=== PATIENT | male | born 1950 | race Caucasian/White ===

== ENCOUNTER → 2016-05-04 | Outpatient (CLI) | payer OTHER ==
[~2016-05-04] MED LIST: AMLO-114 PO; ATV5 PO; CALC500C70 PO; CLIN300C10 PO; ESCI10TA17 PO; FLUT0.0529 NAE; FLUT50SP37; GLC500 PO; GLCPUNK PO; LSN20 PO; MTR400 PO
[2016-05-04 17:45] LABS: BLOOD UREA NITROGEN 22 mg/dl (7-18); BUN/CREATININE RATIO 23.6 (10-20); CALCIUM 9.7 mg/dl (8.5-10.1); CARBON DIOXIDE 26 mmol/L (21-32); CHLORIDE 105 mmol/L (98-107); CREATININE 0.94 mg/dl (0.60-1.40); GLUCOSE 177 mg/dl (70-99); POTASSIUM 4.3 mmol/L (3.5-5.1); SODIUM 141 mmol/L (136-145)
[2016-05-05 06:32] LABS: ESTIMATED AVERAGE GLUCOSE 154 mg/dl; HA1C FLAG Normal (Normal)
== END | disposition home or self-care (01) ==
LOC: C.LABPVFM 15:16
PROVIDERS: ATTEND Family Medicine
DX: E11.9 Type 2 diabetes mellitus without complications (principal); I10 Essential (primary) hypertension

== ENCOUNTER → 2016-08-30 | Outpatient (CLI) | payer OTHER ==
[2016-08-30 13:44] LABS: ESTIMATED AVERAGE GLUCOSE 154 mg/dl; HA1C FLAG Normal (Normal)
[2016-08-30 18:35] LABS: BLOOD UREA NITROGEN 20 mg/dl (7-18); BUN/CREATININE RATIO 20.2 (10-20); CALCIUM 8.8 mg/dl (8.5-10.1); CARBON DIOXIDE 24 mmol/L (21-32); CHLORIDE 104 mmol/L (98-107); GLUCOSE 221 mg/dl (70-99); POTASSIUM 4.1 mmol/L (3.5-5.1); SODIUM 139 mmol/L (136-145)
== END | disposition home or self-care (01) ==
LOC: C.LABPVFM 11:05
PROVIDERS: ATTEND Family Medicine
DX: E11.9 Type 2 diabetes mellitus without complications (principal); F41.9 Anxiety disorder, unspecified; R10.2 Pelvic and perineal pain; M54.5 Low back pain; I71.9 Aortic aneurysm of unspecified site, without rupture; E55.9 Vitamin D deficiency, unspecified; J01.10 Acute frontal sinusitis, unspecified

== ENCOUNTER 2016-08-31 21:50 | Emergency (ER) | payer OTHER ==
[~2016-08-31] VITALS: Ht 172.7 cm; Wt 95.5 kg
[~2016-08-31 21:50] MED LIST changes: -CLIN300C10 PO; -FLUT50SP37; -GLC500 PO
[2016-08-31 21:53] VITALS: TEMP 36.4; Ht 172.7 cm; Wt 95.5 kg
[2016-08-31] MEDS ORDERED: GLC500 PO (22:06)
[2016-08-31] MEDS ORDERED: FLUT50SP37 (22:06)
--- NOTE | 2016-08-31 22:28 | DIAGNOSTIC IMAGING REPORT ---
LEFT ELBOW MIN 3 VIEWS ROUTINE CLINICAL HISTORY: left elbow swelling edema COMPARISON: None. DISCUSSION: The bones and joint spaces appear intact. There is no evidence of fracture, dislocation or bony disease. Considerable soft tissue edema. No significant joint effusion. IMPRESSION: Considerable soft tissue edema. No significant joint effusion. No acute bony abnormality. Electronically signed by: Shon Huggins M.D. 08/31/2016 10:27 PM Dictated Date/Time: 08/31/2016 10:26 PM
[2016-08-31 23:04] LABS: BASO % 0.2 %; BASO ABS # 0.03 K/uL (0-0.2); COMPLETE YES; EOS % 1.3 %; HEMATOCRIT 44.3 % (42-52); IG% 0.3 %; LYMPH % 13.2 %; LYMPH ABS # 1.81 K/uL (1.2-3.4); MEAN CELL VOLUME 91.7 fL (80-100); MEAN CORPUSCULAR HEMOGLOBIN 32.1 pg (25-34); MEAN PLATELET VOLUME 12.1 fL (7.4-10.4); MONO % 10.4 %; NEUT % 74.6 %; PLATELET COUNT 150 K/uL (130-400); RED BLOOD COUNT 4.83 M/uL (4.7-6.1)
[2016-08-31] MEDS ORDERED: CLINDAMYCIN IV 900 MG in DEXTROSE 5% ADD-VANTAGE 100ML 100 ML IV ONE (23:15)
[2016-08-31 23:34] LABS: SYNOVIAL FLUID APPEARANCE HAZY; SYNOVIAL FLUID COLOR YELLOW
[2016-08-31 23:36] LABS: BUN/CREATININE RATIO 26.7 (10-20); C-REACTIVE PROTEIN 0.46 mg/dl (0-0.29); CALCIUM 9.5 mg/dl (8.5-10.1); CREATININE 0.98 mg/dl (0.60-1.40); POTASSIUM 4.2 mmol/L (3.5-5.1); URIC ACID 5.1 mg/dl (2.6-7.2)
[2016-09-01] LABS: LYME DISEASE AB IGG NEG (NEG); LYME DISEASE AB IGM NEG (NEG)
[2016-09-01] MEDS ORDERED: CLIN300C10 PO (00:28)
[2016-09-01 00:55] VITALS: BP 127/65; PULSE 75; O2SAT 94
--- NOTE | 2016-09-01 01:15 | EMERGENCY ROOM VISIT NOTE ---
History First contact with patient: 22:00 Chief Complaint: ELBOW PAIN/INJURY Stated Complaint: LEFT ELBOW PAIN, SWELLING, REDNESS History of Present Illness The patient is a 66 year old male who presents to the Emergency Room with complaints of left elbow pain and swelling for the past few days that has been getting progressively worse who Initially hit his elbow 2 weeks ago on a table and scratched it and has been picking at the scab. Patient is a diabetic and blood sugars have been running decent per patient. Tetanus is current. Patient continues to smoke. Patient denies chest pain, dyspnea, any numbness or tingling, fever, chills, vomiting, diaphoresis, lightheadedness or dizziness. He is tolerating by mouth fluids and food. No history of tick bites. No history of bursitis or gout. Review of Systems See HPI for pertinent positives & negatives. A total of 10 systems reviewed and were otherwise negative. Past Medical/Surgical History Medical Problems: (1) Diabetes (2) Hypertension (3) Kidney stones Social History Smoking Status: Never Smoker Alcohol Use: heavy Drug Use: none Marital Status: Housing Status: lives with family Occupation Status: employed Current/Historical Medications Scheduled Amlodipine (Norvasc), 10 MG PO DAILY Calcium/Vitamin D (Os-Dallin 500 Plus D), 1 TAB PO DAILY Clindamycin Hcl (Clindamycin Hcl), 1 TAB PO QID Escitalopram (Lexapro), 10 MG PO DAILY Lisinopril (Lisinopril), 40 MG PO DAILY Metformin HCl (Metformin HCl), 500 MG PO BID Scheduled PRN Lorazepam (Lorazepam), 0.5 MG PO HS PRN for Anxiety Miscellaneous Medications Fluticasone Propionate (Nasal) (Clarispray) Allergies Coded Allergies: Levofloxacin (Verified Allergy, Unknown, GI UPSET, 08/31/16) Physical Exam Vital Signs Date Time Temp Pulse Resp B/P Pulse Ox O2 Delivery O2 Flow Rate FiO2 08/31/16 23:33 69 16 126/80 92 Room Air 08/31/16 21:53 36.4 78 18 151/86 95 Room Air Physical Exam VITALS: Vitals are noted on the nurse's note and reviewed by myself. Vital signs stable. GENERAL: Pleasant male, in no acute distress, nondiaphoretic, well-developed well-nourished. SKIN: Left elbow with small abrasion that is healing with minimal erythema 3 cm x 3 cm with olecranon bursitis 6 cm x 4 cm The rest of the skin was without rashes, erythema, edema, or bruising. There is no tenting of the skin. Capillary reflex less than 2 seconds. HEAD: Normocephalic atraumatic. EARS: External auditory canals clear, tympanic membranes pearly duron without erythema or effusion bilaterally. EYES: Pupils equal round and reactive to light and accommodation. Conjunctivae without injection, sclerae without icterus. NOSE: Patent, turbinates without inflammation or discharge. MOUTH: Mucous membranes moist. Pharynx without erythema or exudate. Uvula midline. Airway patent. Tongue does not deviate. NECK: Supple without nuchal rigidity. No lymphadenopathy. No thyromegaly. Cervical spine is nontender. No JVD. HEART: Regular rate and rhythm LUNGS: Clear to auscultation bilaterally without wheezes, rales or rhonchi. No dullness to percussion. No retractions or accessory muscle use. ABDOMEN: Positive bowel sounds x 4. Normal tympanic percussion. Soft, nontender, without masses or organomegaly. Zamudio sign negative. No guarding or rebound tenderness. MUSCULOSKELETAL: Left elbow nontender to palpation with full range of motion Left elbow with small abrasion that is healing with minimal erythema 3 cm x 3 cm with olecranon bursitis 6 cm x 4 cm No muscle atrophy, erythema, or edema noted to other extremities. NEURO: Patient was alert and oriented to person place and time. Normal sensation to light and sharp touch. No focal neurological deficits. Medical Decision & Procedures Laboratory Results 08/31/16 22:45 Red Blood Count 4.83, Mean Corpuscular Volume 91.7, Mean Corpuscular Hemoglobin 32.1, Mean Corpuscular Hemoglobin Concent 35.0, Mean Platelet Volume 12.1, Neutrophils (%) (Auto) 74.6, Lymphocytes (%) (Auto) 13.2, Monocytes (%) (Auto) 10.4, Eosinophils (%) (Auto) 1.3, Basophils (%) (Auto) 0.2, Neutrophils # (Auto ) 10.21, Lymphocytes # (Auto) 1.81, Monocytes # (Auto) 1.43, Eosinophils # (Auto ) 0.18, Basophils # (Auto) 0.03 08/31/16 22:45 Test 08/31/16 22:30 08/31/16 22:45 Synovial Fluid Source ELBOW Synovial Fluid Color YELLOW Synovial Fluid Appearance HAZY Synovial Fluid WBC 8774 /uL (0-200) Synovial Fluid RBC < 3000 /uL Synovial Fluid Polynuclear WBCs % 33.0 % Synovial Fluid Mononuclear WBCs % 67.0 % White Blood Count 13.70 K/uL (4.8-10.8) Red Blood Count 4.83 M/uL (4.7-6.1) Hemoglobin 15.5 g/dL (14.0-18.0) Hematocrit 44.3 % (42-52) Mean Corpuscular Volume 91.7 fL (80-100) Mean Corpuscular Hemoglobin 32.1 pg (25-34) Mean Corpuscular Hemoglobin Concent 35.0 g/dl (32-36) Platelet Count 150 K/uL (130-400) Mean Platelet Volume 12.1 fL (7.4-10.4) Neutrophils (%) (Auto) 74.6 % Lymphocytes (%) (Auto) 13.2 % Monocytes (%) (Auto) 10.4 % Eosinophils (%) (Auto) 1.3 % Basophils (%) (Auto) 0.2 % Neutrophils # (Auto) 10.21 K/uL (1.4-6.5) Lymphocytes # (Auto) 1.81 K/uL (1.2-3.4) Monocytes # (Auto) 1.43 K/uL (0.11-0.59) Eosinophils # (Auto) 0.18 K/uL (0-0.5) Basophils # (Auto) 0.03 K/uL (0-0.2) RDW Standard Deviation 44.4 fL (36.4-46.3) RDW Coefficient of Variation 13.2 % (11.5-14.5) Immature Granulocyte % (Auto) 0.3 % Immature Granulocyte # (Auto) 0.04 K/uL (0.00-0.02) Erythrocyte Sedimentation Rate 2 mm/hr (0-14) Anion Gap 8.0 mmol/L (3-11) Est Creatinine Clear Calc Drug Dose 84.2 ml/min Estimated GFR () 93.4 Estimated GFR (Non- 80.6 BUN/Creatinine Ratio 26.7 (10-20) Uric Acid 5.1 mg/dl (2.6-7.2) Calcium Level 9.5 mg/dl (8.5-10.1) C-Reactive Protein 0.46 mg/dl (0-0.29) Chemistry Specimen Hemolysis Lyme Disease IgG Antibody NEG (NEG) Lyme Disease IgM Antibody NEG (NEG) Medications Administered Medications (Trade) Dose Ordered Sig/Izabella Route Start Time Stop Time Status Last Admin Dose Admin Clindamycin Phosphate/Dextrose (Cleocin Iv/ Dextrose Add-Mikado 100ML) 106 ml @ 100 mls/hr ONE ONCE IV 08/31/16 23:15 09/01/16 00:18 DC 08/31/16 23:29 100 MLS/HR Procedure Bursa aspiration Indication: Rule out septic bursa. Location: Left olecranon bursa Verbal consent was obtained after the risks and benefits were explained, including but not limited to bleeding, scarring, infection, pain, and bone/joint /nerve damage. At this time, the risks of the procedure are less than the risks of NOT performing the procedure. A time out was taken and the correct patient and site identified. The skin was prepped with betadine and a sterile field set. The bursa was drained with an 18-gauge needle and 50 mL of yellow clear fluid was withdrawn. There is cleansed and dressed with bacitracin and dressing applied. Mingo bandage was applied for compression. Neurovascular status was rechecked after placement and is intact. Detailed wound care instructions and signs and symptoms of worsening infection reviewed with the patient. No complications and the patient tolerated the procedure well. ED Course Prior records reviewed and summarized as above. Triage Nursing notes reviewed. Additional history obtained from family. The patient's history was concerning for swelling and redness of the skin. Differential diagnosis: Etiologies such as bursitis, septic bursitis, septic joint, gout, Lyme's disease , cellulitis, abscess, MRSA infection, DVT, necrotizing fasciitis, dermatitis, drug eruption, as well as others were entertained.. Physical examination: The physical examination was consistent with bursitis and cellulitis ER treatment provided: Bursa aspiration as above, clindamycin On reassessment the patient felt better. Diagnostics interpreted by me: The labs revealed mild leukocytosis. Negative sedimentation rate. Negative Gram stain for bacteria. 8700 WBCs on aspiration Imaging studies: CLINICAL HISTORY: left elbow swelling edema COMPARISON: None. DISCUSSION: The bones and joint spaces appear intact. There is no evidence of fracture, dislocation or bony disease. Considerable soft tissue edema. No significant joint effusion. IMPRESSION: Considerable soft tissue edema. No significant joint effusion. No acute bony abnormality. Electronically signed by: Shon Huggins M.D. 08/31/2016 10:27 PM This appears to be elect ground bursitis with superficial cellulitis. Patient had no pain with range of motion of his joint. He had a mild leukocytosis. Negative sedimentation rate. He was well-appearing. He was started on antibiotics and the bursa was drained per patient's request. He was informed this most likely will reaccumulate. Mingo bandage was placed for compression. He is advised to follow-up with orthopedics or family care in a few days or here in the ER sooner for fevers, vomiting, redness, drainage, worsening signs or symptoms or as needed. By the evaluation outlined above emergent etiologies such as abscess, septic joint, necrotizing fasciitis, DVT, as well as others were deemed relatively unlikely. The pt informed about the findings as listed above. All questions were answered and pleased with the treatment. Return instructions were outlined and the patient was discharged in stable condition. Outpatient prescription management: cleocin Referral: The patient was referred back to Ortho and primary care physician for follow- up in 2 to 3 days for a recheck of the current condition. case reviewed with my Attending Medical Decision As above Impression Primary Impression: Left arm cellulitis Additional Impression: Olecranon bursitis, left elbow Departure Information Dispostion Home / Self-Care Condition GOOD Prescriptions Clindamycin Hcl (CLINDAMYCIN HCL) 300 Mg Cap 1 TAB PO QID for 10 Days, #40 TABS Prov: rTeva Mello ., BABAR 09/01/16 Referrals Jose Man D.O. Forms HOME CARE DOCUMENTATION FORM, IMPORTANT VISIT INFORMATION Patient Instructions Cellulitis - [facility], My [facility], ED Bursitis Elbow Olecranon Additional Instructions Wear mingo compression for the next 2 weeks. Do not have it so tight that you cannot feel your fingers. Cleocin 300mg: Take one pill four times daily for 10 days for your skin infection. All antibiotics can cause diarrhea. If this occurs and you feel worse or it does not resolve in 1-2 days follow up with your doctor or return to the Emergency Department as this could be signs of serious underlying problems. Any medication can cause an allergic reaction, stop the pills immediately and return to the ER for rash, hives, breathing difficulties, or swelling. Acetaminophen(Tylenol) may be used for fever or pain. Use 1000mg every six hours as needed. Avoid using more than 3000mg in a 24 hour period. Avoid resting your elbow on a table. This can exacerbate your bursitis. Rest and drink plenty of fluids. Continue current medications. Return to the ER for severe pain, persistent fevers, spreading redness, or any worsening of your condition. Follow up with your primary physician and orthopedics within 2-3 days for a recheck of the current condition. Problem Qualifiers
[2016-09-02 19:27] LABS: LYME DNA PCR CSF OR SYNOVIAL Not detected (Not Detected); LYME DNA SOURCE Synovial Fluid
== END 2016-09-01 00:55 | disposition home or self-care (01) ==
LOC: C.EDB 21:51 → C.EDA 09-01 00:55
DX: M70.22 Olecranon bursitis, left elbow (principal); L03.114 Cellulitis of left upper limb; I10 Essential (primary) hypertension; E11.9 Type 2 diabetes mellitus without complications; Z87.442 Personal history of urinary calculi; Z79.4 Long term (current) use of insulin; Z79.899 Other long term (current) drug therapy; Z88.8 Allergy status to other drugs, medicaments and biological substances

== ENCOUNTER 2017-08-16 19:38 | Emergency (ER) | payer OTHER ==
[~2017-08-16] VITALS: Ht 172.7 cm; Wt 94.9 kg
[~2017-08-16 19:38] MED LIST changes: +CLIN300C10 PO; -FLUT0.0529 NAE; +FLUT50SP37; +GLC500 PO; -GLCPUNK PO; -MTR400 PO
[2017-08-16 19:55] VITALS: TEMP 36.6; Ht 172.7 cm; Wt 94.9 kg
[2017-08-16] MEDS ORDERED: LSN40 PO (20:08)
--- NOTE | 2017-08-16 20:34 | DIAGNOSTIC IMAGING REPORT ---
L ELBOW MIN 3 VIEWS ROUTINE CLINICAL HISTORY: Left elbow edema. COMPARISON: Left elbow radiographs August 31, 2016. FINDINGS: Alignment of the left elbow is anatomic. No acute fracture or suspicious osseous lesion is present. Irregularity of the lateral epicondyle is chronic. Note is made of marked soft tissue swelling overlying the olecranon process and proximal left ulna shown best on lateral projection. Anterior fat pad is prominent. Posterior fat pad is not visualized. IMPRESSION: 1. No acute fracture identified. 2. Marked soft tissue swelling overlying the proximal left ulna. While nonspecific, this could reflect olecranon bursitis. 3. Possible left elbow joint effusion. Electronically signed by: Leoncio Tavares M.D. 08/16/2017 8:33 PM Dictated Date/Time: 08/16/2017 8:31 PM
--- NOTE | 2017-08-16 20:55 | EMERGENCY ROOM VISIT NOTE ---
ED Visit Note First contact with patient: 20:10 I have seen and examined this patient with Jose Quiñonez and generally agree with the treatment plan as discussed. Incision & Drainage Indication: Olecranon bursitis. Location: Left elbow Verbal consent was obtained after the risks and benefits were explained, including but not limited to bleeding, scarring, infection, pain, and bone/joint /nerve damage. At this time, the risks of the procedure are less than the risks of NOT performing the procedure. A time out was taken and the correct patient and site identified. The skin was prepped with betadine and a sterile field set. The olecranon bursa was entered with a number 18 needle and clear straw like material expressed. Sterile dressing applied. Detailed wound care instructions and signs and symptoms of worsening infection reviewed with the patient. No complications and the patient tolerated the procedure well. Problem List Medical Problems: (1) Diabetes Status: Chronic (2) Hypertension Status: Chronic (3) Kidney stones Status: Chronic Current/Historical Medications Scheduled Amlodipine (Norvasc), 10 MG PO DAILY Calcium/Vitamin D (Os-Dallin 500 Plus D), 1 TAB PO DAILY Escitalopram (Lexapro), 10 MG PO DAILY Lisinopril (Lisinopril), 40 MG PO DAILY Metformin HCl (Metformin HCl), 500 MG PO BID Allergies Coded Allergies: Levofloxacin (Verified Allergy, Unknown, GI UPSET, 08/16/17) Vital Signs Date Time Temp Pulse Resp B/P (MAP) Pulse Ox O2 Delivery O2 Flow Rate FiO2 08/16/17 19:55 36.6 89 18 150/87 95 Room Air Departure Information Referrals No Doctor, Assigned (PCP) Patient Instructions My [facility]
[2017-08-16] MEDS ORDERED: LIDOCAINE/EPINEPHRINE 1% 20 ML VIAL INFIL STA (21:02)
[2017-08-16] MEDS ORDERED: CEPH500C PO (21:17)
[2017-08-16] MEDS ORDERED: CEPHALEXIN 500MG HOME PACK 1 EA BTL PO STA (21:18)
--- NOTE | 2017-08-16 21:18 | EMERGENCY ROOM VISIT NOTE ---
History First contact with patient: 20:10 Chief Complaint: SWELLING TO EXTREMITY Stated Complaint: LEFT ELBOW FLUID History of Present Illness The patient is a 67 year old male who presents to the Emergency Room via private vehicle accompanied by female with complaints of "left elbow fluid". The patient states that he has a history of left olecranon bursitis with previous fluid drainage in the past. He states that recently he bumped it against a backhoe while working on it a few days ago. He now notes swelling to the left elbow. 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 He takes no blood thinners. No fevers or chills. Review of Systems A complete 6-point Review of Systems was discussed with the patient, with pertinent positives and negatives listed in the History of Present Illness. All remaining Review of Systems questions can be considered negative unless otherwise specified. Past Medical/Surgical History Medical Problems: (1) Diabetes (2) Hypertension (3) Kidney stones Social History Smoking Status: Current Every Day Smoker Alcohol Use: heavy Drug Use: none Marital Status: Housing Status: lives with family Occupation Status: employed Current/Historical Medications Scheduled Amlodipine (Norvasc), 10 MG PO DAILY Calcium/Vitamin D (Os-Dallin 500 Plus D), 1 TAB PO DAILY Cephalexin Monohydrate (Keflex), 500 MG PO TID Escitalopram (Lexapro), 10 MG PO DAILY Lisinopril (Lisinopril), 40 MG PO DAILY Metformin HCl (Metformin HCl), 500 MG PO BID Physical Exam Vital Signs Date Time Temp Pulse Resp B/P (MAP) Pulse Ox O2 Delivery O2 Flow Rate FiO2 08/16/17 21:25 72 111/62 95 Room Air 08/16/17 19:55 36.6 89 18 150/87 95 Room Air Physical Exam VITAL SIGNS - Vital signs and nursing notes were reviewed. Stable. Afebrile. GENERAL -67-year-old male appearing his stated age who is in no acute distress. Communicates well with provider and answers questions appropriately. SKIN -overlying the left elbow there is significant edema, particularly overlying the olecranon process extending distally into the proximal forearm. No breaks in the integument. No drainage. Minimal erythema. EXTREMITIES -minimal tenderness to palpation overlying the left olecranon region. No bony tenderness. Full range of motion noted. Medical Decision & Procedures ER Provider Diagnostic Interpretation: L ELBOW MIN 3 VIEWS ROUTINE CLINICAL HISTORY: Left elbow edema. COMPARISON: Left elbow radiographs August 31, 2016. FINDINGS: Alignment of the left elbow is anatomic. No acute fracture or suspicious osseous lesion is present. Irregularity of the lateral epicondyle is chronic. Note is made of marked soft tissue swelling overlying the olecranon process and proximal left ulna shown best on lateral projection. Anterior fat pad is prominent. Posterior fat pad is not visualized. IMPRESSION: 1. No acute fracture identified. 2. Marked soft tissue swelling overlying the proximal left ulna. While nonspecific, this could reflect olecranon bursitis. 3. Possible left elbow joint effusion. Electronically signed by: Leoncio Tavares M.D. 08/16/2017 8:33 PM Dictated Date/Time: 08/16/2017 8:31 PM Medications Administered Medications (Trade) Dose Ordered Sig/Izabella Route Start Time Stop Time Status Last Admin Dose Admin Cephalexin Monohydrate (Keflex 500MG Home Pack) 1 homepack NOW STAT PO 08/16/17 21:18 08/16/17 21:19 DC 08/16/17 21:25 1 HOMEPACK Medical Decision Patient was seen and evaluated as above in room D1. Review was performed of nursing notes and vital signs. After obtaining a thorough history and physical examination the above work up was performed. X-ray was obtained. Patient requested that I drain the left elbow. I informed him that generally we do not drain them in the emergency department setting, however he noted that he had this done before with good success and this is really bothering him. Benefit versus risk was discussed, and the procedure was performed. Please refer to the attending note regarding the procedure. A large amount of straw-colored fluid was expressed. This was nearly 30 cc. A pressure Mingo wrap was applied. He is to follow with orthopedics or return with worsening. Because of the potential for a small overlying cellulitis he will be placed upon Keflex. I do not suspect septic joint. The patient was educated upon management, had questions answered prior to discharge, and was discharged home in good condition. I attest that I have personally reviewed the patient medication list. I attest that I have reviewed the patient's blood pressure and it was found to be elevated likely secondary to situation In the evaluation and treatment of this patient the following differential diagnoses were entertained: Olecranon bursitis, septic joint, hematoma, among others. Impression Primary Impression: Olecranon bursitis of left elbow Departure Information Dispostion Home / Self-Care Condition GOOD Prescriptions Cephalexin Monohydrate (Keflex) 500 Mg Cap 500 MG PO TID for 7 Days, #21 CAP Prov: Jose Quiñonez PA-C 08/16/17 Referrals No Doctor, Assigned (PCP) Rylan Cooper, DO Patient Instructions My [facility] Additional Instructions You were seen in the emergency department olecranon bursitis. This was drained per request. I recommend Keflex 500 mg every 8 hours. Your given the first doses here. Remainders at the pharmacy. Please keep the Mingo wrap on the arm for the next few days. This can be changed once daily. Please call Dr. Cooper to schedule follow-up. Please return with any new/concerning symptoms.
[2017-08-16 21:25] VITALS: BP 111/62; PULSE 72; O2SAT 95
== END 2017-08-16 21:25 | disposition home or self-care (01) ==
LOC: C.EDB 19:39 → C.EDD 21:25
DX: M70.22 Olecranon bursitis, left elbow (principal); E11.9 Type 2 diabetes mellitus without complications; I10 Essential (primary) hypertension; Z79.84 Long term (current) use of oral hypoglycemic drugs; Z79.899 Other long term (current) drug therapy; F17.210 Nicotine dependence, cigarettes, uncomplicated

== ENCOUNTER → 2017-09-12 | Outpatient (CLI) | payer OTHER ==
[~2017-09-12] MED LIST changes: -ATV5 PO; -CLIN300C10 PO; -FLUT50SP37; -LSN20 PO; +LSN40 PO
[2017-09-12 17:49] LABS: BLOOD UREA NITROGEN 21 mg/dl (7-18); CALCIUM 8.8 mg/dl (8.5-10.1); CARBON DIOXIDE 25 mmol/L (21-32); CHOLESTEROL 139 mg/dl (0-200); CREATININE 0.98 mg/dl (0.60-1.40); GLUCOSE 81 mg/dl (70-99); LDL CHOLESTEROL CALCULATED 70 mg/dl; SODIUM 139 mmol/L (136-145)
[2017-09-13 06:36] LABS: HEMOGLOBIN A1C 7.1 % (4.5-5.6)
== END | disposition home or self-care (01) ==
LOC: C.LABPVFM 15:32
PROVIDERS: ATTEND Nurse Practitioner
DX: E11.9 Type 2 diabetes mellitus without complications (principal)